=== PATIENT | female | born 1960 | race Caucasian/White ===

== ENCOUNTER 2018-07-01 17:58 | Emergency (ER) | payer MEDICAID ==
--- NOTE | 2018-07-01 18:02 | EDM.PDOC ---
ED HPI GENERAL MEDICAL PROBLEM - General Chief Complaint: Cardiovascular Problem Stated Complaint: heart racing Time Seen by Provider: 07/01/18 18:00 - History of Present Illness INITIAL COMMENTS - FREE TEXT/NARRATIVE: According to patient she claims been having racing heart for past 3 days now. She constantly feels like her heart is racing and once in a while she feels like she misses beat. No chest pain, no fatigue, no weakness, no shortness of breath, no dizziness or syncope. Pt claims she feels very anxious.Concerned, if she is having heart attack. Pt does not have any medical problems and is not on any medications. Onset Date: 06/28/18 Severity: Mild Improves with: Reports: None Worsens with: Reports: None Associated Symptoms: Denies: Confusion, Chest Pain, Cough, Diaphoresis, Fever/ Chills, Nausea/Vomiting, Rash, Seizure, Shortness of Breath, Syncope, Weakness - Related Data Allergies Allergy/AdvReac Type Severity Reaction Status Date / Time codeine Allergy Cannot Verified 12/05/15 09:11 Remember hydroxyzine HCl Allergy Cannot Verified 12/05/15 09:11 [From Vistaril] Remember hydroxyzine pamoate Allergy Cannot Verified 12/05/15 09:11 [From Vistaril] Remember meperidine HCl [From Demerol] Allergy Cannot Verified 12/05/15 09:11 Remember Penicillins Allergy Swelling Verified 12/05/15 09:11 tetanus and diphtheria Allergy Cannot Verified 12/05/15 09:11 toxoids Remember [tetanus & diphtheria toxoids] Home Meds: Home Meds NK [No Known Home Meds] 12/05/15 [History] Past Medical History Cardiovascular History: Reports: Blood Clots/VTE/DVT Gastrointestinal History: Reports: Pancreatitis - Past Surgical History Endocrine Surgical History: Reports: Other (See Below) Oncologic Surgical History: Reports: Other (See Below) ED ROS GENERAL - Review of Systems Review Of Systems: See Below Constitutional: Denies: Fever, Chills HEENT: Denies: Rhinitis, Throat Pain, Throat Swelling Respiratory: Denies: Shortness of Breath, Wheezing, Cough, Sputum Cardiovascular: Reports: Palpitations. Denies: Chest Pain, Claudication, Dyspnea on Exertion, Edema, Lightheadedness, Orthopnea, PND, Syncope Endocrine: Denies: Fatigue GI/Abdominal: Denies: Abdominal Pain, Constipation, Distension, Nausea, Vomiting Musculoskeletal: Denies: Joint Pain, Joint Swelling Skin: Denies: Bruising, Pruritis, Rash ED EXAM, GENERAL - Physical Exam Exam: See Below Exam Limited By: No Limitations General Appearance: Alert, WD/WN, No Apparent Distress, Anxious Eye Exam: Bilateral Eye: EOMI, PERRL Ears: Normal External Exam, Normal Canal, Hearing Grossly Normal, Normal TMs Ear Exam: Bilateral Ear: Auricle Normal, Canal Normal, TM normal Nose: Normal Inspection, Normal Mucosa, No Blood Throat/Mouth: Normal Inspection, Normal Lips, Normal Teeth, Normal Gums, Normal Oropharynx, Normal Voice, No Airway Compromise Head: Atraumatic, Normocephalic Neck: Normal Inspection, Supple, Non-Tender, Full Range of Motion Respiratory/Chest: No Respiratory Distress, Lungs Clear, Normal Breath Sounds, No Accessory Muscle Use, Chest Non-Tender Cardiovascular: Normal Peripheral Pulses, Regular Rate, Rhythm, No Edema, No Gallop, No JVD, No Murmur, No Rub, Tachycardia (initally around 100 , did settle down int 90s.) GI/Abdominal: Normal Bowel Sounds, Soft, Non-Tender, No Organomegaly, No Distention, No Abnormal Bruit, No Mass Extremities: Normal Inspection, Normal Range of Motion, Non-Tender, Normal Capillary Refill, No Pedal Edema Neurological: Alert, Oriented, CN II-XII Intact, Normal Cognition, Normal Gait, Normal Reflexes, No Motor/Sensory Deficits Psychiatric: Anxious Skin Exam: Warm, Intact EKG INTERPRETATION EKG Date: 07/01/18 Time: 16:00 Rhythm: NSR Rate (Beats/Min): 99 [place]: Normal P-Wave: Present QRS: Normal ST-T: Normal QT: Normal Course - Vital Signs Text/Narrative:: Pt claims that she has been having racing heart. Her heart rate in the ER has been 90-100s. Her initial BP was 160/107mmhg. Her EKG is in sinus tachy. Clinical exam is normal other than her elevated blood pressure. Repeat blood pressure after 30 minutes was 137/97mmhg.She was reassured that heart rate is slightly high, but not severe, could be related to her elevated blood pressure. she received metoprolol 25mg orally. Pt's CBC and BMP appear normal. Pt's BP now is down to 126/76mmhg and her heart rate is 84/minute. Pt is feeling better. reassured that she has developed benign hypertension. started on metoprolol 12.5mg twice daily. Followup in clinic in 7-10 days for recheck of her blood pressure. Last Recorded V/S: Last Vital Signs Temp 98.0 F 07/01/18 18:00 Pulse 101 H 07/01/18 18:13 Resp BP 131/94 H 07/01/18 18:13 Pulse Ox 99 07/01/18 18:00 - Orders/Labs/Meds Orders: Active Orders 24 hr Category Date Time Status EKG Documentation Completion [RC] ASDIRECTED Care 07/01/18 18:00 Active Labs: Laboratory Tests 07/01/18 07/01/18 Range/Units 18:25 18:25 WBC 5.7 D (4.0-11.0) K/uL RBC 4.40 (3.80-5.80) M/uL Hgb 15.8 D (11.5-16.5) g/dL Hct 46.1 D (37.0-47.0) % MCV 105 H (76-96) fL MCH 35.9 H (27.0-32.0) pg MCHC 34.3 (31.0-35.0) g/dL RDW 12.0 (11.0-16.0) % Plt Count 234 D (150-500) K/uL MPV 8.6 (6.0-10.0) fL Neut % (Auto) 43.5 L (45.0-70.0) % Lymph % (Auto) 46.2 H (20.0-40.0) % [place] % (Auto) 8.4 (3.0-10.0) % Eos % (Auto) 1.4 (1.0-5.0) % Baso % (Auto) 0.5 (0.0-0.5) % Neut # (Auto) 2.47 (2.00-7.50) K/uL Lymph # (Auto) 2.63 (1.50-4.00) K/uL [place] # (Auto) 0.48 (0.20-0.80) K/uL Eos # (Auto) 0.08 (0.04-0.40) K/uL Baso # (Auto) 0.03 (0.02-0.10) K/uL Sodium 143 (136-145) mmol/L Potassium 4.4 D (3.5-5.1) mmol/L Chloride 104 (98-107) mmol/L Carbon Dioxide 26.1 (21.0-32.0) mmol/L Anion Gap 17.3 H (5.0-15.0) mmol/L BUN 5 L D (8-26) mg/dL Creatinine 0.58 (0.55-1.02) mg/dL Est Cr Clr Drug Dosing 83.62 mL/min Estimated GFR (MDRD) > 60 (>60) MLS/MIN BUN/Creatinine Ratio 8.6 (6-25) Glucose 100 (74-100) mg/dL Calcium 9.5 D (8.5-10.1) mg/dL Meds: Medications Discontinued Medications Generic Name Dose Route Start Last Admin Trade Name Freq PRN Reason Stop Dose Admin Metoprolol Tartrate 25 mg 07/01/18 18:11 07/01/18 18:13 Lopressor PO 07/01/18 18:12 25 mg ONETIME ONE Administration Departure - Departure Time of Disposition: 19:00 Disposition: Home, Self-Care 01 Condition: Fair Clinical Impression: Hypertension Forms: ED Department Discharge Additional Instructions: EKG is normal.Pt's CBC and BMP appear normal. Pt's BP now is down to 126/76mmhg and her heart rate is 84/minute. Pt is feeling better. reassured that she has developed benign hypertension. started on metoprolol 12.5mg twice daily. Followup in clinic in 7-10 days for recheck of her blood pressure. - Problem List & Annotations (1) Hypertension SNOMED Code(s): 48262520 Code(s): I10 - ESSENTIAL (PRIMARY) HYPERTENSION Status: Acute Current Visit: Yes - Problem List Review Problem List Initiated/Reviewed/Updated: Yes - My Orders Last 24 Hours: My Active Orders 07/01/18 18:00 EKG Documentation Completion [RC] ASDIRECTED - Assessment/Plan Last 24 Hours: My Active Orders 07/01/18 18:00 EKG Documentation Completion [RC] ASDIRECTED Assessment:: hypertension Plan: Pt claims that she has been having racing heart. Her heart rate in the ER has been 90-100s. Her initial BP was 160/107mmhg. Her EKG is in sinus tachy. Clinical exam is normal other than her elevated blood pressure. Repeat blood pressure after 30 minutes was 137/97mmhg.She was reassured that heart rate is slightly high, but not severe, could be related to her elevated blood pressure. she received metoprolol 25mg orally. Pt's CBC and BMP appear normal. Pt's BP now is down to 126/76mmhg and her heart rate is 84/minute. Pt is feeling better. reassured that she has developed benign hypertension. started on metoprolol 12.5mg twice daily. Followup in clinic in 7-10 days for recheck of her blood pressure.
[2018-07-01] MEDS ORDERED: Metoprolol Tartrate 25 MG Tab PO ONE (18:11)
[2018-07-01] MEDS ORDERED: Metoprolol Tartrate 25 MG Tab ONE ×2 (18:57→19:00)
[2018-07-01 19:31] VITALS: BP 122/75
== END 2018-07-01 19:05 | disposition home or self-care (01) ==
LOC: LB.ED 17:58
DX: I10 Essential (primary) hypertension (principal); Z88.5 Allergy status to narcotic agent; Z88.8 Allergy status to other drugs, medicaments and biological substances
CPT/HCPCS: 36415; 80048; 85025; 93005; 99285; A9270